=== PATIENT | female | born 1990 | race Caucasian/White ===

== ENCOUNTER 2018-05-29 11:27 | Outpatient (CLI) | payer MEDICAID ==
[2018-05-29] VITALS (17 sets, daily range): BP systolic 124–149; BP diastolic 75–105
== END 2018-05-29 23:59 | disposition home or self-care (01) ==
LOC: CARD DIAG 11:27
PROVIDERS: ATTEND Family Medicine
DX: R00.0 Tachycardia, unspecified (principal); Z88.0 Allergy status to penicillin; Z88.8 Allergy status to other drugs, medicaments and biological substances
CPT/HCPCS: 93660

== ENCOUNTER 2021-01-04 13:45 | Emergency (ER) | payer MEDICAID | END 2021-01-04 17:00 | disposition home or self-care (01) | LOC: ER 13:45 | DX: M79.601 Pain in right arm (principal); R07.9 Chest pain, unspecified; R63.4 Abnormal weight loss; G43.909 Migraine, unspecified, not intractable, without status migrainosus | CPT/HCPCS: 99281 ==